=== PATIENT | female | born 1980 | race Caucasian/White ===

== ENCOUNTER → 2017-09-20 | Outpatient (CLI) | payer OTHER | LOC: M PAIN 13:00 | DX: M54.5 Low back pain (principal); G89.29 Other chronic pain; M79.9 Soft tissue disorder, unspecified; E11.9 Type 2 diabetes mellitus without complications; F32.9 Major depressive disorder, single episode, unspecified; I82.0 Budd-Chiari syndrome; I10 Essential (primary) hypertension; G43.909 Migraine, unspecified, not intractable, without status migrainosus; G47.30 Sleep apnea, unspecified; F17.200 Nicotine dependence, unspecified, uncomplicated; Z79.84 Long term (current) use of oral hypoglycemic drugs; Z79.899 Other long term (current) drug therapy; Z88.5 Allergy status to narcotic agent | CPT/HCPCS: G0463 ==

== ENCOUNTER → 2022-10-11 | Outpatient (CLI) | payer OTHER | LOC: M RAD 14:23 | PROVIDERS: ATTEND Obstetrics & Gynecology | DX: N93.9 Abnormal uterine and vaginal bleeding, unspecified (principal) ==

== ENCOUNTER → 2022-12-28 | Outpatient (REF) | payer OTHER ==
[~2022-12-28] MED LIST: CALC-205 PO; CETI-24 PO; ERGO500029; HYDR-3490 PO; MAGN500T2 PO; POTA1TAB23 PO; ROSU20TA61 PO; STEG15TA PO; TERB250T91 PO; THERTAB52 PO
== END ==
LOC: M SFHCWAGY 17:55
PROVIDERS: ATTEND Obstetrics & Gynecology
DX: N93.9 Abnormal uterine and vaginal bleeding, unspecified (principal)

== ENCOUNTER 2023-01-18 07:50 | Day surgery (SDC) | payer OTHER ==
[~2023-01-18] VITALS: Ht 170.2 cm; Wt 97.1 kg
[~2023-01-18 07:50] MED LIST changes: +ceFAZolin SOD 2 GM in IV 1 EA IV ONE
[2023-01-18 08:28] LABS: HEMATOCRIT 45.3 % (36.0-47.0); HEMOGLOBIN 15.2 g/dl (12.0-15.5); MEAN CORPUSCULAR HEMOGLOBIN 29.2 pg (27.0-33.0); MEAN CORPUSCULAR HGB CONC 33.6 g/dl (32.0-36.5); MEAN CORPUSCULAR VOLUME 87.1 fl (80.0-96.0); PLATELET COUNT, AUTOMATED 287 10^3/uL (150-450); WHITE BLOOD COUNT 13.2 10^3/uL (4.0-10.0)
[2023-01-18] MEDS ORDERED: LR 1,000 ML IV SCH ×2 (08:30→12:10)
[2023-01-18] MEDS ORDERED: INSULIN LISPRO (NovoLOG) PER UNIT SC PRN (08:40)
[2023-01-18] MEDS ORDERED: SUGAMMADEX SODIUM 500 MG/5 ML VIAL (BRIDION) As Ordered ONE (10:23)
[2023-01-18] MEDS ORDERED: propofoL 200 MG/20 ML VIAL As Ordered ONE (10:23)
[2023-01-18] MEDS ORDERED: ACETAMINOPHEN 1000MG 100ML IV BAG As Ordered ONE (10:23)
[2023-01-18] MEDS ORDERED: fentaNYL 100 MCG/2 ML INJECTION As Ordered ONE ×2 (10:23→11:55)
[2023-01-18] MEDS ORDERED: ROCURONIUM BROMIDE 50MG/5ML VIAL As Ordered ONE (10:23)
[2023-01-18] MEDS ORDERED: LIDOCAINE 2% 100MG/5ML SDV (FOR ANES.) As Ordered ONE (10:23)
[2023-01-18] MEDS ORDERED: ONDANSETRON 4MG 2ML VIAL As Ordered ONE (10:23)
[2023-01-18] MEDS ORDERED: MIDAZOLAM INJ 2MG/2ML VIAL As Ordered ONE (10:23)
[2023-01-18] MEDS ORDERED: dexmedeTOMIDine (4MCG/ML)200MCG/50ML BTL (PRECEDEX) As Ordered ONE (10:23)
[2023-01-18] MEDS ORDERED: KETOROLAC 60MG 2ML VIAL As Ordered ONE (10:23)
[2023-01-18] MEDS ORDERED: fentaNYL 100 MCG/2 ML INJECTION IV PRN (12:10)
[2023-01-18] MEDS ORDERED: HYDROMORPHONE HCL 0.5 MG/ 0.5 ML SYRINGE IV PRN (12:10)
[2023-01-18] MEDS ORDERED: ONDANSETRON 4MG 2ML VIAL IV PRN (12:10)
[2023-01-18] MEDS ORDERED: oxyCODONE 5MG TAB PO PRN (12:10)
[2023-01-18] MEDS ORDERED: PERCOCET 5MG/325MG TAB PO PRN (13:15)
[2023-01-18 14:38] VITALS: BP 169/89; TEMP 98.1; O2SAT 98
[2023-01-18] MEDS ORDERED: KETOROLAC 30 MG/ML 1ML VIAL IV SCH (17:30)
== END 2023-01-18 14:38 | disposition home or self-care (01) ==
LOC: M SDC 07:50
PROVIDERS: ATTEND Obstetrics & Gynecology
DX: N84.1 Polyp of cervix uteri (principal); D25.9 Leiomyoma of uterus, unspecified; N93.8 Other specified abnormal uterine and vaginal bleeding; E11.9 Type 2 diabetes mellitus without complications; G47.30 Sleep apnea, unspecified; I10 Essential (primary) hypertension; E78.00 Pure hypercholesterolemia, unspecified; F17.210 Nicotine dependence, cigarettes, uncomplicated; Z88.5 Allergy status to narcotic agent; Z79.899 Other long term (current) drug therapy
CPT/HCPCS: 36415; 58573; 85027; 86850; 86900; 86901; 88307; J0131; J0665; J0690; J1100; J1885; J2250; J2405; J3010